=== PATIENT | male | born 1955 | race Caucasian/White ===

== ENCOUNTER 2019-08-10 09:16 | Emergency (ER) | payer OTHER ==
[2019-08-10 09:40] VITALS: O2SAT 96
--- NOTE | 2019-08-10 09:56 | ERPHSYRPT ---
- History of Present Illness Time Seen by Provider: 08/10/19 09:40 Source: patient Exam Limitations: no limitations Patient Subjective Stated Complaint: Pt cut his left thumb on the medial side approx 2 cm long Triage Nursing Assessment: Pt walked into the ER, 2 cm laceration to left medial thumb cut on a scraper at his work, vitals wnl, denies pain, no other issues at this time Physician History: 64 y/o right handed white male presents with laceration to left thumb. pts tetanus is utd. occurred captain waiter/waitress. Timing/Duration: today Quality: painful (mild) Location: hands (left thumb) Possible Causes: other (accidental) Associated Symptoms: denies symptoms Allergies/Adverse Reactions: No Known Drug Allergies Allergy (Verified 08/10/19 09:40) Home Medications: Citalopram Hydrobromide [Celexa] 10 mg PO DAILY 08/10/19 [History] Meloxicam 15 mg PO UD PRN 08/10/19 [History] Hx Tetanus, Diphtheria Vaccination/Date Given: Yes (1-2 years ago) - Review of Systems Constitutional: No Symptoms Eyes: No Symptoms Ears, Nose, & Throat: No Symptoms Respiratory: No Symptoms Cardiac: No Symptoms Abdominal/Gastrointestinal: No Symptoms Genitourinary Symptoms: No Symptoms Musculoskeletal: No Symptoms Skin: Other (laceration left thumb 2 cm) Neurological: No Symptoms Psychological: No Symptoms Endocrine: No Symptoms Hematologic/Lymphatic: No Symptoms Immunological/Allergic: No Symptoms All Other Systems: Reviewed and Negative - Past Medical History Pertinent Past Medical History: Yes Neurological History: No Pertinent History ENT History: No Pertinent History Cardiac History: No Pertinent History Respiratory History: No Pertinent History Endocrine Medical History: No Pertinent History Musculoskeletal History: Other GI Medical History: No Pertinent History History: No Pertinent History Psycho-Social History: Anxiety Male Reproductive Disorders: No Pertinent History - Past Surgical History Past Surgical History: Yes Neuro Surgical History: No Pertinent History Cardiac: No Pertinent History Respiratory: No Pertinent History Gastrointestinal: Hernia Repair Genitourinary: No Pertinent History Musculoskeletal: Joint Replacement Male Surgical History: No Pertinent History Other Surgical History: right achilles repair. acl. right knee replacement. 8 hernia surgeries. hip replacement - Social History Smoking Status: Never smoker Exposure to second hand smoke: No Drug Use: marijuana Patient Lives Alone: No - Nursing Vital Signs Nursing Vital Signs: Initial Vital Signs Temperature 97.7 F 08/10/19 09:29 Pulse Rate 67 08/10/19 09:29 Blood Pressure 149/72 08/10/19 09:29 O2 Sat by Pulse Oximetry 96 08/10/19 09:29 Pain Scale Pain Intensity 0 - Physical Exam General Appearance: no apparent distress, alert, anxiety Eye Exam: PERRL/EOMI, eyes nml inspection Ears, Nose, Throat Exam: normal ENT inspection, moist mucous membranes Neck Exam: normal inspection, non-tender, supple, full range of motion Respiratory Exam: No chest tenderness Gastrointestinal/Abdomen Exam: No tenderness Rectal Exam: not done Back Exam: normal inspection, normal range of motion, No CVA tenderness, No vertebral tenderness Extremity Exam: normal range of motion, pelvis stable, lacerations (left thumb) Neurologic Exam: alert, oriented x 3, cooperative, rubber cutter and shape carver II-XII nml as tested Skin Exam: normal color, laceration (2cm left thumb. superficial skin flap. no active bleeding. nv intact. tendon intact) Lymphatic Exam: No adenopathy SpO2 Interpretation: normal SpO2: 96 O2 Delivery: Room Air Procedures - Laceration/Wound Repair Left Other Wound Location: Left, hand (thumb) Wound Length (cm): 2 Wound's Depth, Shape: superficial, flap Wound Explored: to base Irrigated: Yes Hibiclens Prep: Yes Wound Repaired With: Steri-strips, Dermabond Sterile Dressing Applied?: Yes Ordered Tests: Active Orders 24 hr Category Date Time Status Wound Care STAT Care 08/10/19 09:56 Active - Progress Progress: improved Counseled pt/family regarding: diagnosis - Departure Departure Disposition: Home Clinical Impression: Thumb laceration Condition: Stable Critical Care Time: No Additional Instructions: keep current dressing in place until tomorrow night. after you remove top dressing tomorrow night, wash daily and leave steristrips in place until they fall off.
[2019-08-10 10:12] VITALS: BP 141/72; PULSE 65
== END 2019-08-10 10:36 | disposition home or self-care (01) ==
LOC: ED 09:16
DX: S61.012A Laceration without foreign body of left thumb without damage to nail, initial encounter (principal); W26.8XXA Contact with other sharp object(s), not elsewhere classified, initial encounter; Y92.69 Other specified industrial and construction area as the place of occurrence of the external cause
CPT/HCPCS: 12001; 99283